=== PATIENT | male | born 1950 | race Caucasian/White ===

== ENCOUNTER 2019-09-30 11:48 | Outpatient (CLI) | payer MEDICARE, OTHER ==
--- NOTE | 2019-09-30 12:12 | RAD ---
Exam: 1 view abdomen HISTORY: Renal calculi COMPARISON: none FINDINGS: Surgical clips in the right upper quadrant, with coarse technique. Bowel gas pattern is non specific. No suspicious densities in the pelvis. 3.5 mm calculus projects over the lower pole of the right kidney. IMPRESSION: 3.5 mm calculus projects over the lower pole right kidney.
== END 2019-09-30 11:49 | disposition home or self-care (01) ==
LOC: RAD 11:48
PROVIDERS: ATTEND Urology
DX: N20.0 Calculus of kidney (principal)
CPT/HCPCS: 74018; 81001; G0103